=== PATIENT | female | born 1985 | race Caucasian/White ===

== ENCOUNTER 2021-09-21 12:35 | Outpatient (REF) | payer OTHER, SELFPAY ==
--- NOTE | ~2021-09-21 | XR_ITS ---
EXAMINATION: XR FOOT, RIGHT CLINICAL INFORMATION: Pain COMPARISON: None TECHNIQUE: AP, lateral, and oblique views of the right foot. FINDINGS: No acute visible fracture or dislocation. Joint spaces and alignment are maintained. Soft tissues are unremarkable. XR/XR foot RT min 3V IMPRESSION: No acute visible fracture or dislocation.
== END 2021-09-21 12:36 | disposition home or self-care (01) ==
LOC: HO.XRAY 12:35
PROVIDERS: PCP Internal Medicine; Visit Provider Physician Assistant
DX: M25.571 Pain in right ankle and joints of right foot (principal)
CPT/HCPCS: 73630

== ENCOUNTER → 2022-10-18 17:35 | Outpatient (BNVA) | payer OTHER, SELFPAY | PROVIDERS: PCP Internal Medicine; Visit Provider Psychiatry & Neurology Psychiatry ==

== ENCOUNTER 2023-04-02 15:42 | Outpatient (AMB) | payer OTHER, SELFPAY ==
[2023-04-02 15:48] VITALS: BP 130/90; PULSE 70
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
== END 2023-04-02 15:59 | disposition home or self-care (01) ==
LOC: HO.HOP 15:42
PROVIDERS: PCP Internal Medicine; Visit Provider Psychiatry & Neurology Psychiatry
DX: F43.10 Post-traumatic stress disorder, unspecified (principal); F98.8 Other specified behavioral and emotional disorders with onset usually occurring in childhood and adolescence
CPT/HCPCS: 99214

== ENCOUNTER → 2023-04-02 15:42 | Outpatient (BNVA) | payer OTHER, SELFPAY | PROVIDERS: PCP Internal Medicine; Visit Provider Psychiatry & Neurology Psychiatry ==

== ENCOUNTER 2023-07-31 16:17 | Outpatient (AMB) | payer OTHER, SELFPAY ==
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
== END 2023-07-31 17:32 | disposition home or self-care (01) ==
LOC: HO.HOP 16:17
PROVIDERS: PCP Internal Medicine; Visit Provider Psychiatry & Neurology Psychiatry
DX: F43.10 Post-traumatic stress disorder, unspecified (principal); F98.8 Other specified behavioral and emotional disorders with onset usually occurring in childhood and adolescence
CPT/HCPCS: 99214

== ENCOUNTER → 2023-07-31 16:17 | Outpatient (BNVA) | payer OTHER, SELFPAY | PROVIDERS: PCP Internal Medicine; Visit Provider Psychiatry & Neurology Psychiatry ==

== ENCOUNTER 2023-12-27 16:11 | Outpatient (AMB) | payer OTHER, SELFPAY ==
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
== END 2023-12-27 17:06 | disposition home or self-care (01) ==
LOC: HO.HOP 16:11
PROVIDERS: PCP Internal Medicine; Visit Provider Psychiatry & Neurology Psychiatry
DX: F43.10 Post-traumatic stress disorder, unspecified (principal); R73.9 Hyperglycemia, unspecified; F98.8 Other specified behavioral and emotional disorders with onset usually occurring in childhood and adolescence
CPT/HCPCS: 90833; 99213

== ENCOUNTER 2023-12-27 16:11 | Outpatient (REF) | payer OTHER, SELFPAY | END 2023-12-27 16:12 | disposition home or self-care (01) | LOC: HO.LAB 16:11 | PROVIDERS: PCP Internal Medicine; Visit Provider Psychiatry & Neurology Psychiatry | DX: Z13.89 Encounter for screening for other disorder (principal) ==

== ENCOUNTER 2023-12-28 | Outpatient (REF) | payer OTHER, SELFPAY ==
[2023-12-28 16:38] LABS: Estimated Average Glucose 94 mg/dL; Hemoglobin A1c % 4.9 % (<6.0)
== END 2023-12-28 00:01 | disposition home or self-care (01) ==
LOC: HO.LAB
PROVIDERS: Visit Provider Psychiatry & Neurology Psychiatry
DX: R73.9 Hyperglycemia, unspecified (principal)
CPT/HCPCS: 36415; 83036

== ENCOUNTER 2024-04-15 10:45 | Outpatient (AMB) | payer OTHER, SELFPAY ==
--- NOTE | 2024-04-15 11:45 | A.OFFPSYCH_ITS ---
Intake Intake Visit Reasons: depression Allergies Penicillin Allergy (Unknown, Uncoded 03/07/23 13:13) Medication List - Last Reconciled 04/15/24 by Moy Lepe MD alprazolam 0.25 mg PO DAILY PRN etonogestrel-ethinyl estradiol 0.12-0.015 mg/24 hr vag rings vaginal methylphenidate HCl ER (Concerta) 27 mg PO DAILY naproxen 500 mg PO BID PRN propranolol 10 - 20 mg (1 - 2 x 10 mg) PO DAILY PRN 90 days HPI- Psychiatric Chief Complaint: depression HPI Narrative: Patient has generally been doing okay off of sertraline. She did discontinue secondary to chronic weight gain over past few years and whether it might be related to the use of sertraline. Feels propranolol helpful does not have intrusive PTSD and recurrent anxiety in the way that she did previously. Does not feel triggered by her work. Does have anticipatory anxiety regarding test taking GED PHQ-9 unremarkable Past Psychiatric History: History of anxiety and ADD Mental Status Exam Mental Status Exam Narrative: PHQ-9 unremarkable Narrative Mental Status Exam Appearance: Casually dressed Behavior: Cooperative appropriate psychomotor: Within normal limits Speech: Normal volume and prosody Thought proccess logical and goal-directed Thought content: Future oriented appropriate concerns about health feels good about her work Mood: Okay Affect: Appropriate to mood full affect SI:denies HI:denies VH/AH:none Delusions: None Insight/judgment: Good Assessment and Plan Assessment & Plan (1) Post traumatic stress disorder (PTSD): Status: Acute Code(s): F43.10 - Post-traumatic stress disorder, unspecified (2) Attention deficit disorder: Status: Acute Code(s): F98.8 - Other specified behavioral and emotional disorders with onset usually occurring in childhood and adolescence Plan Discussed option to lower Concerta case anxiety recurs off of sertraline continue propranolol has been helpful also discussed how this could be useful for test taking anxiety Continue treatment for ADD PTSD seems to be generally in check Medications: Refilled methylphenidate HCl ER (Concerta) Partial Fill upon patient request. 27 mg PO DAILY 60 tabs 0RF F98.8 - Other specified behavioral and emotional disorders with onset usually occurring in childhood and adolescence Discontinued sertraline Discontinued Reason: Doctor's Order 50 mg PO DAILY 90 tabs 1RF Counseling and coordination of Care Details: I spent [] minutes reviewing the record, seeing the patient and documenting in the medical record. Counseling provided to the patient/caregiver as outlined below. Addressed patient/caregiver concerns regarding current medication regime including effective adherence. Addressed patient/caregiver concerns regarding diagnosis and prognosis including accuracy of diagnosis, prognosis over time, impact of diagnosis. Addressed patient/caregiver concerns regarding impact of recent stressors. 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 Patient was adopted close with family her is retired Substance History: none Trauma History: Work setting Coding Level of Care Code Est Pt Level 4 (78921) Diagnoses Post traumatic stress disorder (PTSD) F43.10 Attention deficit disorder F98.8
== END 2024-04-15 14:15 | disposition home or self-care (01) ==
LOC: HO.HOP 10:45
PROVIDERS: PCP Internal Medicine; Visit Provider Psychiatry & Neurology Psychiatry
DX: F43.10 Post-traumatic stress disorder, unspecified (principal); F98.8 Other specified behavioral and emotional disorders with onset usually occurring in childhood and adolescence
CPT/HCPCS: 99214

== ENCOUNTER → 2024-04-15 10:45 | Outpatient (BNVA) | payer OTHER, SELFPAY | PROVIDERS: PCP Internal Medicine; Visit Provider Psychiatry & Neurology Psychiatry ==

== ENCOUNTER 2024-08-05 09:01 | Outpatient (REF) | payer OTHER, SELFPAY ==
--- NOTE | ~2024-08-05 | XR_ITS ---
EXAMINATION: XR HIP 2 OR MORE VIEWS RIGHT HISTORY: Pain in right hip COMPARISON: There are no prior studies for comparison. FINDINGS: Two views of the right hip are submitted. Osseous mineralization is normal. There is no fracture or dislocation. The joint space is maintained. The soft tissues are unremarkable. XR/XR hip RT min 2V IMPRESSION: Unremarkable examination of the right hip. Electronically signed by: Fercho Lopez MD 08/05/2024 10:34 AM EDT
--- OUTSIDE RECORDS SUMMARY | 2024-08-05 09:55 | XMS_ITS | Clinical Summary ---
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 Not on gianni e 03/03/2024 Are you concerned about learning? Not on file 03/03/2024 No 03/03/2024 No 03/03/2024 Digital Access Answer Date Recorded No 03/03/2024 No 03/03/2024 Reliable internet access at home? Not on file 03/03/2024 Device with a working camera? Not on file Sex and Gender Information Value Date Recorded Sex Assigned at Not on file Gender Identity Not on file Sexual Orientation Not on file Last Filed Vital Signs Vital Sign Reading Time Taken Comments Blood Pressure 134/82 03/03/2024 11:17 AM EDT Pulse 81 03/03/2024 11:17 AM EDT Temperature 36.6 ??C (97.9 ??F) 03/03/2024 11:17 AM E DT Respiratory Rate 16 03/03/2024 11:17 AM EDT Oxygen Saturation 100% 03/03/2024 11:17 AM EDT Inhaled Oxygen Concentration - - Weight - - Height - - Body Mass Index - - Plan of Treatment Health Maintenance Due Date Last Done Comments DEPRESSION SCREENING 1995 SMOKING Hx and SMOKELESS TOBACCO SCREENING 1996 HEPATITIS C SCREENING 2001 HIV ONE-TIME SCREENING (18-65 YEARS) 2001 PAP SMEAR 2004 MAMMOGRAM 2023 COVID-19 VACCINE ( season) 2024 04/12/2022, 03/10/2021, 06/24/2020, Additional history exists Adult Td,Tdap Booster 02/14/2032 02/13/2022 INFLUENZA VACCINE Completed 02/05/2024, , 02/13/2022, Additional history exists HEPATITIS A VACCINES Aged Out No long er eligible based on patient's age to complete this topic HIB VACCINES Aged Out No longer eligi ble based on patient's age to complete this topic MENINGOCOCCAL VACCINES (ACWY) Aged Out No longer eligible based on patient's age to complete this topic PNEUMOCOCCAL VACCINES (0-49 years) Aged Out No longer eligible based on patient's age to complete this topic Medical Devices Not on file Care Teams Tuber Machine Cutter Relationship Specialty Start Date End Date Pcp, Unknown PCP - General 03/03/24 Additional Source Comments The information contained in this document represents components of the legal health record. It is not the complete legal health record.[facility]
== END 2024-08-05 09:02 | disposition home or self-care (01) ==
LOC: HO.XRAY 09:01
PROVIDERS: PCP Internal Medicine; Visit Provider Internal Medicine
DX: M25.551 Pain in right hip (principal)
CPT/HCPCS: 73502

== ENCOUNTER → 2024-08-05 09:07 | Outpatient (BNV) | payer OTHER, SELFPAY | PROVIDERS: PCP Internal Medicine; Visit Provider Radiology Diagnostic Radiology | DX: M25.551 Pain in right hip (principal) | CPT/HCPCS: 73502 ==

== ENCOUNTER 2024-11-04 17:15 | Outpatient (AMB) | payer OTHER, SELFPAY ==
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
== END 2024-11-04 17:16 | disposition home or self-care (01) ==
LOC: HO.HOP 17:15
PROVIDERS: PCP Internal Medicine; Visit Provider Psychiatry & Neurology Psychiatry
DX: F98.8 Other specified behavioral and emotional disorders with onset usually occurring in childhood and adolescence (principal); F43.10 Post-traumatic stress disorder, unspecified; F41.0 Panic disorder [episodic paroxysmal anxiety]
CPT/HCPCS: 99214

== ENCOUNTER 2024-12-03 12:37 | Outpatient (AMB) | payer OTHER, SELFPAY ==
--- NOTE | 2024-12-03 12:40 | MHC.OFFVISPS ---
Intake Intake Visit Reasons: Depression Allergies Penicillin Allergy (Unknown, Uncoded 03/07/23 13:13) HPI- Psychiatric Chief Complaint: Depression HPI Narrative: Patient has been increasingly anxious overwhelmed difficulty with insomnia and anxiety during the day. Ruminating about trusting her who states he would not harm himself and is committed to them but has difficulty feeling and trusting this.Difficulty falling and staying asleep Difficulty focusing and concentrating at work patient does feel somewhat better than when last seen feeling somewhat more like herself less distraught Past Psychiatric History: History of anxiety and ADD Mental Status Exam Mental Status Exam Narrative: tearful anxious Patient Appearance: Well Grooomed Patient Orientation: Person, Place, Time and Situation Level of Consciousness: Awake Patient Behavior: Appropriate, Talkative and Anxious Mood Description: Anxious, Labile and Apprehensive Affect Description: Anxious and Labile Speech Pattern: Perseverating Hallucinations: None Delusions: Not Present Assessment and Plan Assessment & Plan (1) Post traumatic stress disorder (PTSD): Status: Acute Code(s): F43.10 - Post-traumatic stress disorder, unspecified (2) Panic disorder [episodic paroxysmal anxiety]: Status: Acute Code(s): F41.0 - Panic disorder [episodic paroxysmal anxiety] (3) Attention deficit disorder: Status: Acute Code(s): F98.8 - Other specified behavioral and emotional disorders with onset usually occurring in childhood and adolescence Plan Patient feeling somewhat better on current regimen with vilazodone 10 mg daily intermittent use of clonazepam but has not been taking regularly. Patient feeling more like herself restart Concerta 27 mg patient had started restarted a few days ago tolerating well functions better with less distractibility Medications: Refilled methylphenidate HCl ER (Concerta) Partial Fill upon patient request. 27 mg PO DAILY 60 tabs 0RF F98.8 - Other specified behavioral and emotional disorders with onset usually occurring in childhood and adolescence Resumed methylphenidate HCl ER 27 mg PO DAILY 60 tabs 0RF F98.8 - Other specified behavioral and emotional disorders with onset usually occurring in childhood and adolescence methylphenidate HCl ER (Concerta) 27 mg PO DAILY 60 tabs 0RF F98.8 - Other specified behavioral and emotional disorders with onset usually occurring in childhood and adolescence Counseling and coordination of Care Medication management counseling: Effectiveness and Side effects Diagnosis and Prognosis Counseling: Impact of diagnosis on life functions and Adequacy of current interventions Details: I spent [37] minutes reviewing the record, seeing the patient and documenting in the medical record. Counseling provided to the patient/caregiver as outlined below. Addressed patient/caregiver concerns regarding current medication regime including effective adherence. Addressed patient/caregiver concerns regarding diagnosis and prognosis including accuracy of diagnosis, prognosis over time, impact of diagnosis. Addressed patient/caregiver concerns regarding impact of recent stressors. 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 Patient was adopted close with family her is retired [employer] Substance History: none Trauma History: Work setting Coding Level of Care Code Est Pt Level 3 (41424) Therapy 30m w/E&M (51398) Diagnoses Post traumatic stress disorder (PTSD) F43.10 Panic disorder [episodic paroxysmal anxiety] F41.0 Attention deficit disorder F98.8
--- OUTSIDE RECORDS SUMMARY | 2024-12-03 13:00 | XMS_ITS | Clinical Summary ---
Author Organization [facility] Address [address] [place] [address] Phone Care Team Providers Care Aerospace Project Engineer Name Role Phone Pcp, Unknown Primary Care Provider Unavailabl e Allergies No known active allergies Medications ALPRAZolam (XANAX) 0.25 MG tablet 12/27/2023 Acti ve ENILLORING 0.12-0.015 mg/24 hr vaginal ring 01/07/2024 Act armando methylphenidate HCl 27 MG ER tablet 02/12/2024 [...] with a working camera? Not on file Comments Unknown Sex and Gender Information Value Date Recorded Sex Assigned at Not on file Legal Sex Female 9:55 AM EDT Gender Identity Not on file Sexual Orientation Not on file Last Filed Vital Signs Vital Sign Reading Time Taken Comments Blood Pressure 134/82 03/03/2024 11:17 AM EDT Pulse 81 03/03/2024 11:17 AM EDT Temperature 36.6 C (97.9 F) 03/03/2024 11:17 AM EDT Respiratory Rate 16 03/03/2024 11:17 AM EDT [...] history exists Adult Td,Tdap Booster 02/14/2032 02/13/2022 HEPATITIS A VACCINES Aged Out No long er eligible based on patient's age to complete this topic HIB VACCINES Aged Out No longer eligi ble based on patient's age to complete this topic MENINGOCOCCAL VACCINES (ACWY) Aged Out No longer eligible based on patient's age to complete this topic MENINGOCOCCAL VACCINES (B) Aged Out N o longer eligible based on patient's age to complete this topic PNEUMOCOCCAL VACCINES (0-49 years) Aged Out No longer eligible based on patient's age to complete this topic Medical Devices Not on [place] [address] [place] [address] HMO O O [facility] HMO Care Teams Aerospace Project Engineer Relationship Specialty Start Date End Date Pcp, Unknown PCP - General 03/03/24 Additional Source Comments The information contained in this document represents components of the legal health record. It is not the complete legal health record.[facility]
== END 2024-12-03 14:23 | disposition home or self-care (01) ==
LOC: HO.HOP 12:37
PROVIDERS: PCP Internal Medicine; Visit Provider Psychiatry & Neurology Psychiatry
DX: F43.10 Post-traumatic stress disorder, unspecified (principal); F41.0 Panic disorder [episodic paroxysmal anxiety]; F98.8 Other specified behavioral and emotional disorders with onset usually occurring in childhood and adolescence
CPT/HCPCS: 90833; 99213

== ENCOUNTER 2024-12-19 15:50 | Outpatient (AMB) | payer OTHER, SELFPAY ==
--- OUTSIDE RECORDS SUMMARY | 2024-12-19 15:52 | XMS_ITS | Clinical Summary ---
Author Organization [facility] Address [address] [place] [address] Phone Care Team Providers Care Survey Research Teacher Name Role Phone Pcp, Unknown Primary Care [...] topic Medical Devices Not on file [place] [id number] HMO O O [facility] HMO Care Teams Survey Research Teacher Relationship Specialty Start Date End Date Pcp, Unknown PCP - General 03/03/24 Additional Source Comments The information contained in this document represents components of the legal health record. It is not the complete legal health record.[facility]
--- NOTE | 2025-01-19 11:58 | A.OFFPSYCH_ITS ---
Intake Intake Visit Reasons: depression Allergies Penicillin Allergy (Unknown, Uncoded 03/07/23 13:13) HPI- Psychiatric Chief Complaint: depression HPI Narrative: Pt very upset difficulty fx has found out her has had an affair , and was not honest about this in tx. Pt devastated emotionally has been working no si but overwhelmed. Patient finding it difficult to concentrate at work ruminating not sure with this will mean for her future and her family's future. Some intermittent panic Past Psychiatric History: History of anxiety and ADD Mental Status Exam Mental Status Exam Narrative: tearful anxious Patient Appearance: Well Grooomed Patient Orientation: Person, Place, Time and Situation Level of Consciousness: Awake Patient Behavior: Appropriate, Talkative and Anxious Mood Description: Anxious, Labile and Apprehensive Affect Description: Anxious and Labile Speech Pattern: Perseverating Hallucinations: None Delusions: Not Present Depressive Symptoms: Increased Anxiety, Insomnia, Increased Irritability and Difficulty Concentrating Judgement and Insight: Patient feeling overwhelmed difficulty with insomnia. Will try and focused on stabilizing herself and has asked her to leave Assessment and Plan Assessment & Plan (1) Post traumatic stress disorder (PTSD): Status: Acute Code(s): F43.10 - Post-traumatic stress disorder, unspecified (2) Panic disorder [episodic paroxysmal anxiety]: Status: Acute Code(s): F41.0 - Panic disorder [episodic paroxysmal anxiety] (3) Attention deficit disorder: Status: Acute Code(s): F98.8 - Other specified behavioral and emotional disorders with onset usually occurring in childhood and adolescence Plan No self-harm patient will use clonazepam up to b.i.d. clonidine Ativan HS as needed vilazodone 10 mg consider PHP discussed option of some medical leave patient feels she will do best with structure she has asked her to leave and will be concentrating on getting herself stable for herself and for her daughter Medications: New clonidine HCl 0.1 mg PO BEDTIME PRN 30 tabs 1RF insomnia/anxiety 30 days Counseling and coordination of Care Details-Self Mgmt counseling: Issues related to catastrophic finding that her was having an affair needs much non judgemental listening problem solving different options reviewed patient has family and friends she is able to reach out to no SI Medication management counseling: Effectiveness, Side effects and Dosing range Diagnosis and Prognosis Counseling: Impact of diagnosis on life functions and Adequacy of current interventions Details: I spent [40] minutes reviewing the record, seeing the patient and documenting in the medical record. Counseling provided to the patient/caregiver as outlined below. Addressed patient/caregiver concerns regarding current medication regime including effective adherence. Addressed patient/caregiver concerns regarding diagnosis and prognosis including accuracy of diagnosis, prognosis over time, impact of diagnosis. Addressed patient/caregiver concerns regarding impact of recent stressors. 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 Patient was adopted close with family her is retired Substance History: none Trauma History: Work setting Coding Level of Care Code Est Pt Level 3 (02956) Therapy 30m w/E&M (89302) Diagnoses Post traumatic stress disorder (PTSD) F43.10 Panic disorder [episodic paroxysmal anxiety] F41.0 Attention deficit disorder F98.8
== END 2024-12-19 16:06 | disposition home or self-care (01) ==
LOC: HO.HOP 15:50
PROVIDERS: PCP Internal Medicine; Visit Provider Psychiatry & Neurology Psychiatry
DX: F43.10 Post-traumatic stress disorder, unspecified (principal); F41.0 Panic disorder [episodic paroxysmal anxiety]; F98.8 Other specified behavioral and emotional disorders with onset usually occurring in childhood and adolescence
CPT/HCPCS: 90833; 99213

== ENCOUNTER 2025-02-05 12:01 | Outpatient (AMB) | payer OTHER, SELFPAY ==
--- NOTE | 2025-02-05 12:40 | A.OFFPSYCH_ITS ---
Intake Intake Visit Reasons: depression Allergies Penicillin Allergy (Unknown, Uncoded 03/07/23 13:13) Medication List - Last Reconciled 02/05/25 by Moy Lepe MD clonazepam (Klonopin) 0.5 mg PO BID PRN etonogestrel-ethinyl estradiol 0.12-0.015 mg/24 hr vag rings vaginal hydroxyzine HCl 50 mg PO BEDTIME 90 days methylphenidate HCl ER (Concerta) 27 mg PO DAILY 30 days naproxen 500 mg PO BID PRN propranolol 10 - 20 mg (1 - 2 x 10 mg) PO DAILY PRN 90 days vilazodone 15 mg (1.5 x 10 mg) PO DAILY 90 days HPI- Psychiatric Chief Complaint: depression HPI Narrative: Patient has not been needed the Klonopin or propranolol. Has been taking hydroxyzine 50 mg at bedtime vilazodone 10 mg daily Patient's has moved back in and she is her treatment from his insisting he take care of his own psychiatric healthcare for PTSD and depression and that she is maintaining her own emotional and physical health. She is feeling better more independent is hoping to maintain her marriage. Functioning well at work. Past Psychiatric History: History of anxiety and ADD Mental Status Exam Mental Status Exam Patient Appearance: Well Grooomed Patient Orientation: Person, Place, Time and Situation Level of Consciousness: Awake Patient Behavior: Appropriate and Talkative Mood Description: Calm and Appropriate Affect Description: Appropriate Speech Pattern: Clear and Appropriate Memory Description: Intact Hallucinations: None Delusions: Not Present Thought Content: positive for Intact and positive for Goal Oriented Depressive Symptoms: Increased Anxiety Judgement and Insight: Improved mood less reactivity feels more internally stable sleep improved feels helped by hydroxyzine Assessment and Plan Assessment & Plan (1) Attention deficit disorder: Status: Acute Code(s): F98.8 - Other specified behavioral and emotional disorders with onset usually occurring in childhood and adolescence (2) Post traumatic stress disorder (PTSD): Status: Acute Code(s): F43.10 - Post-traumatic stress disorder, unspecified (3) Panic disorder [episodic paroxysmal anxiety]: Status: Acute Code(s): F41.0 - Panic disorder [episodic paroxysmal anxiety] Plan Increase vilazodone to 15 mg hydroxyzine 25-50 at bedtime patient improved mood more stable Stop clonidine Medications: Changed From vilazodone must administer with a meal/food 10 mg PO DAILY 90 tabs 1RF To vilazodone must administer with a meal/food 15 mg (1.5 x 10 mg) PO DAILY 135 tabs 1RF 90 days From methylphenidate HCl ER Partial Fill upon patient request. 27 mg PO DAILY 60 tabs 0RF F98.8 - Other specified behavioral and emotional disorders with onset usually occurring in childhood and adolescence To methylphenidate HCl ER (Concerta) Partial Fill upon patient request. 27 mg PO DAILY 30 tabs 0RF 30 days F98.8 - Other specified behavioral and emotional disorders with onset usually occurring in childhood and adolescence From hydroxyzine HCl 25 mg PO BID PRN 60 tabs 1RF ANXIETY/INSOMNIA To hydroxyzine HCl 50 mg PO BEDTIME 90 tabs 1RF 90 days Discontinued clonidine HCl Discontinued Reason: Doctor's Order 0.1 mg PO BEDTIME 30 days PRN 30 tabs 1RF insomnia/anxiety Counseling and coordination of Care Pt. Self Management counseling: Cognitive restructuring Medication management counseling: Effectiveness, Side effects and Dosing range Diagnosis and Prognosis Counseling: Adequacy of current interventions Details: I spent [30] minutes reviewing the record, seeing the patient and documenting in the medical record. Counseling provided to the patient/caregiver as outlined below. Addressed patient/caregiver concerns regarding current medication regime including effective adherence. Addressed patient/caregiver concerns regarding diagnosis and prognosis including accuracy of diagnosis, prognosis over time, impact of diagnosis. Addressed patient/caregiver concerns regarding impact of recent s tressors. 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 Patient was adopted close with family her is retired Substance History: none Trauma History: Work setting Coding Level of Care Code Est Pt Level 4 (61599) Diagnoses Attention deficit disorder F98.8 Post traumatic stress disorder (PTSD) F43.10 Panic disorder [episodic paroxysmal anxiety] F41.0
--- OUTSIDE RECORDS SUMMARY | 2025-02-05 17:00 | XMS_ITS | Clinical Summary ---
Author Organization [facility] Address [address] [place] [address] Phone Care Team Providers Care Plumbing Manager Name Role Phone Pcp, Unknown Primary Care [...] YEARS) 2001 PAP SMEAR 2004 MAMMOGRAM 2023 INFLUENZA VACCINE (#1) 2024 , 03/07/2023, 02/13/2022, Additional history exists COVID-19 VACCINE ( season) 2025 04/12/2022, 03/10/2021, 06/24/2020, Additional history exists Adult [...] topic Medical Devices Not on file Insurance [address] [place], [place] [id number] [place], [place] [id number] [place], [place] [id number] [facility] HMO Care Teams Plumbing Manager Relationship Specialty Start Date End Date Pcp, Unknown PCP - General 03/03/24 Additional Source Comments The information contained in this document represents components of the legal health record. It is not the complete legal health record.[facility]
== END 2025-02-05 13:31 | disposition home or self-care (01) ==
LOC: HO.HOP 12:01
PROVIDERS: PCP Internal Medicine; Visit Provider Psychiatry & Neurology Psychiatry
DX: F98.8 Other specified behavioral and emotional disorders with onset usually occurring in childhood and adolescence (principal); F43.10 Post-traumatic stress disorder, unspecified; F41.0 Panic disorder [episodic paroxysmal anxiety]
CPT/HCPCS: 99214

== ENCOUNTER 2025-04-08 10:54 | Outpatient (AMB) | payer OTHER, SELFPAY ==
--- NOTE | 2025-04-07 13:05 | A.OFFPSYCH_ITS ---
Intake Intake Visit Reasons: depression Allergies Penicillin Allergy (Unknown, Uncoded 03/07/23 13:13) Medication List - Last Reconciled 04/08/25 by Moy Lepe MD clonazepam (Klonopin) 0.5 mg PO BID PRN etonogestrel-ethinyl estradiol 0.12-0.015 mg/24 hr vag rings vaginal hydroxyzine HCl 50 mg PO BEDTIME 90 days methylphenidate HCl ER (Concerta) 27 mg PO DAILY 30 days naproxen 500 mg PO BID PRN propranolol 10 - 20 mg (1 - 2 x 10 mg) PO DAILY PRN 90 days vilazodone 30 mg (1.5 x 20 mg) PO DAILY 30 days HPI- Psychiatric Chief Complaint: depression HPI Narrative: The patient presented to discuss ongoing mental health concerns, including difficulties with focus, mood disturbances, and family stressors. HPI The patient reported feeling ongoing stress and rumination, stating, Of course my life is shit. The patient described being able to focus at work but admitted to being distracted. The patient's mother had an occlusive stroke on the weekend of March 14, leading to hospitalization and a significant decline in her physical capabilities, which has been distressing for the patient. The patient expressed feeling overwhelmed by family obligations, particularly with a spouse who is reportedly depressed and unwilling to seek help despite being provided with options like TMS. The patient also expressed uncertainty about the future of their marriage, feeling as though they were walking on sand and unsure of the next steps. Despite having good days, the patient acknowledged that some days felt overwhelming. The patient described their mood as swimming through shit, indicating a significant level of distress and uncertainty. She is not sure if her will be willing to get the help he needs take responsibility deal with his chronic PTSD PAIN The patient did not report a specific pain level out of 10. BACKGROUND The patient did not mention any new allergies or medications. The patient has been on 15 mg of vilazadone which she had increased to 20 mg and was considering whether to adjust the dosage. The patient did not report any new physical symptoms. Past Psychiatric History: History of anxiety and ADD Mental Status Exam Mental Status Exam Patient Appearance: Well Grooomed Patient Orientation: Person, Place, Time and Situation Level of Consciousness: Awake Patient Behavior: Talkative and Anxious Mood Description: Depressed, Anxious, Angry and Apprehensive Affect Description: Constricted, Labile and Apprehensive Ability to Follow Directions: Good Speech Pattern: Clear and Appropriate Memory Description: Intact Hallucinations: None Delusions: Not Present Thought Content: positive for Intact, positive for Goal Oriented and positive for Perseveration Depressive Symptoms: Increased Anxiety, Increased Irritability, Crying Spells and Hopelessness Judgement: Good Assessment and Plan Assessment & Plan (1) Post traumatic stress disorder (PTSD): Status: Acute Code(s): F43.10 - Post-traumatic stress disorder, unspecified (2) Attention deficit disorder: Status: Acute Code(s): F98.8 - Other specified behavioral and emotional disorders with onset usually occurring in childhood and adolescence (3) Panic disorder [episodic paroxysmal anxiety]: Status: Acute Code(s): F41.0 - Panic disorder [episodic paroxysmal anxiety] Plan Increase vilazodone to 30 mg discussed different options for her 's treatment for PTSD in different recommendations and possibilities. Patient's has generally not wished for ongoing [facility] treatment Medications: Changed From vilazodone must administer with a meal/food 15 mg (1.5 x 10 mg) PO DAILY 90 days 135 tabs 1RF To vilazodone must administer with a meal/food 30 mg (1.5 x 20 mg) PO DAILY 45 tabs 2RF 30 days Counseling and coordination of Care Details-Self Mgmt counseling: Issues related to managing chronic stress patient sharp to her marriage Medication management counseling: Effectiveness and Side effects Diagnosis and Prognosis Counseling: Accuracy of diagnosis, Prognosis over time, Impact of diagnosis on life functions and Adequacy of current interventions Details-Diagnosis/Prognosis counseling: discussed diff options for tx for pts Details: I spent [36] minutes reviewing the record, seeing the patient and documenting in the medical record. Counseling provided to the patient/caregiver as outlined below. Addressed patient/caregiver concerns regarding current medication regime including effective adherence. Addressed patient/caregiver concerns regarding diagnosis and prognosis including accuracy of diagnosis, prognosis over time, impact of diagnosis. Addressed patient/caregiver concerns regarding impact of recent stressors. 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 Patient was adopted close with family her is retired Substance History: none Trauma History: Work setting Coding Level of Care Code Est Pt Level 3 (09920) Therapy 30m w/E&M (52037) Diagnoses Post traumatic stress disorder (PTSD) F43.10 Attention deficit disorder F98.8 Panic disorder [episodic paroxysmal anxiety] F41.0
== END 2025-04-08 12:22 | disposition home or self-care (01) ==
LOC: HO.HOP 10:54
PROVIDERS: PCP Internal Medicine; Visit Provider Psychiatry & Neurology Psychiatry
DX: F43.10 Post-traumatic stress disorder, unspecified (principal); F98.8 Other specified behavioral and emotional disorders with onset usually occurring in childhood and adolescence; F41.0 Panic disorder [episodic paroxysmal anxiety]
CPT/HCPCS: 90833; 99213